=== PATIENT | female | born 1995 | race African-American/Black ===

== ENCOUNTER 2018-04-26 12:22 | Emergency (ER) | payer BC, OTHER ==
[~2018-04-26] VITALS: Ht 160 cm; Wt 55.3 kg
[~2018-04-26 12:22] MED LIST: NOHOMEMEDICATIONS; TOBREX5 ML OP
[2018-04-26 13:20] LABS: ABSOLUTE NEUTROPHILS 7.9 thou/uL (1.4-8.2); BASOPHILS 0.7 % (0.0-2.0); EOSINOPHILS 1.5 % (0.0-3.0); HEMOGLOBIN 12.9 gm/dL (12.0-15.0); LYMPHOCYTES 15.9 % (24.0-44.0); MCHC 33.1 g/dL (28.0-37.0); MCV 81.6 fL (80.0-100.0); MONOCYTES 6.7 % (1.0-8.0); PLATELET COUNT 437 thou/uL (150-400); POLYS 75.2 % (36.0-66.0); RBC 4.77 mil/uL (4.20-5.00); RDW 12.9 % (10.5-14.5); WBC 10.5 thou/uL (4.0-11.0)
[2018-04-26 13:25] LABS: ANION GAP 10 mmol/L (7-16); BUN 9 mg/dL (7-18); CALCIUM 9.6 mg/dL (8.5-10.1); CHLORIDE 103 mmol/L (98-107); CO2 24 mmol/L (21-32); CREATININE 0.9 mg/dL (0.6-1.0); GLUCOSE 103 mg/dL (74-106); POTASSIUM 3.3 mmol/L (3.5-5.1); SODIUM 137 mmol/L (136-145)
[2018-04-26 13:29] LABS: SALICYLATE < 2.8 mg/dL (2.8-20.0)
[2018-04-26 14:02] LABS: URINE BILIRUBIN NEGATIVE (Negative); URINE BLOOD 2+ (Negative); URINE CLARITY SL CLOUDY; URINE COLOR YELLOW; URINE GLUCOSE-RANDOM* NEGATIVE (Negative); URINE KETONES 3+ (Negative); URINE NITRITE-REFLEX NEGATIVE (Negative); URINE PROTEIN (DIPSTICK) TRACE (Negative); URINE UROBILINOGEN 0.2 E.U./dl (0.2-1.0)
[2018-04-26 14:05] LABS: URINE LEUKOCYTES-REFLEX 1+ (Negative)
[2018-04-26 14:09] LABS: URINE REDUCING SUBSTANCE NEGATIVE
[2018-04-26 14:11] LABS: AMP/METHAMP Negative (Negative); BARBITURATES Negative (Negative); BENZODIAZEPINES Negative (Negative); CASTS None Seen /LPF (None Seen); COCAINE Negative (Negative); CRYSTALS None Seen /LPF (None Seen); METHADONE Negative (Negative); OPIATES Negative (Negative); PCP Negative (Negative); SQUAMOUS >10 Many /LPF (0-3); URINE RBC 3-10 Few /HPF (0-2)
[2018-04-26] MEDS ORDERED: HYDROXYZINE HCL25 M1 PO (15:53)
[2018-04-26 16:09] VITALS: BP 113/78
== END 2018-04-26 16:11 | disposition home or self-care (01) ==
LOC: ER 12:22
PROVIDERS: Nurse Practitioner Family
DX: F41.0 Panic disorder [episodic paroxysmal anxiety] (principal); F41.1 Generalized anxiety disorder; R06.4 Hyperventilation